=== PATIENT | male | born 1970 | race Native Hawaiian/Other Pacific Islander ===

== ENCOUNTER 2020-01-23 20:32 | Emergency (ER) | payer OTHER ==
[~2020-01-23] VITALS: Ht 177.8 cm; Wt 133.8 kg
[2020-01-23 20:32] VITALS: TEMP 98.2
[2020-01-23 21:08] LABS: PLATELET COUNT 294 K/uL (142-355)
[2020-01-23 21:14] LABS: POTASSIUM 3.7 mmol/L (3.6-5.2); SODIUM 137 mmol/L (136-145)
[2020-01-23 21:19] LABS: PARTIAL THROMBOPLASTIN TIME 19.7 SECONDS (24.5-33.6)
[2020-01-23 23:20] VITALS: BP 124/76
== END 2020-01-23 23:37 | disposition short-term general hospital (02) ==
LOC: ED 20:32
PROVIDERS: Family Medicine
DX: R07.89 Other chest pain (principal)
CPT/HCPCS: 36415; 80053; 82550; 83880; 84484; 85027; 85379; 85610; 85730; 86318; 96360; 96365; 96375; 96376; 99285; J0696; J1170; J2270; J2405; J3490

== ENCOUNTER 2022-02-20 19:38 | Emergency (ER) | payer OTHER ==
[~2022-02-20] VITALS: Ht 177.8 cm; Wt 122.5 kg
[2022-02-20 22:24] VITALS: BP 116/56; TEMP 98.1
== END 2022-02-20 22:24 | disposition home or self-care (01) ==
LOC: ED 19:38
DX: S39.012A Strain of muscle, fascia and tendon of lower back, initial encounter (principal); W17.89XA Other fall from one level to another, initial encounter; Y92.410 Unspecified street and highway as the place of occurrence of the external cause
CPT/HCPCS: 36415; 96374; 96375; 96376; 99284; J1885; J2930; J3360